=== PATIENT | male | born 1970 | race Two or more races ===

== ENCOUNTER 2025-04-07 12:33 | Emergency (ER) | payer SELFPAY ==
[~2025-04-07] VITALS: Ht 170.2 cm; Wt 83.3 kg
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
[2025-04-07] MEDS ORDERED: IBUP1TAB5 PO (15:05)
[2025-04-07 15:08] VITALS: BP 136/84; PULSE 102; RESP 16; TEMP 98.1; O2SAT 96
== END 2025-04-07 15:11 | disposition home or self-care (01) ==
LOC: ER 12:33
DX: M54.6 Pain in thoracic spine (principal); M25.512 Pain in left shoulder; M79.89 Other specified soft tissue disorders; V89.2XXA Person injured in unspecified motor-vehicle accident, traffic, initial encounter; Y93.I9 Activity, other involving external motion; Y92.488 Other paved roadways as the place of occurrence of the external cause; Y99.8 Other external cause status